=== PATIENT | male | born 1940 | race Caucasian/White ===

== ENCOUNTER 2016-07-13 14:14 | Emergency (ER) | payer MEDICARE, OTHER | END 2016-07-13 20:25 | disposition home or self-care (01) | LOC: ER 14:14 | DX: K52.9 Noninfective gastroenteritis and colitis, unspecified (principal); E78.5 Hyperlipidemia, unspecified; I10 Essential (primary) hypertension; K21.9 Gastro-esophageal reflux disease without esophagitis; Z90.49 Acquired absence of other specified parts of digestive tract; Z79.899 Other long term (current) drug therapy | CPT/HCPCS: 36415; 87502; 96360; 96361; Q9963; Q9967 ==